=== PATIENT | male | born 1975 | race Two or more races ===

== ENCOUNTER 2019-04-29 15:17 | Emergency (ER) | payer OTHER ==
[~2019-04-29] VITALS: Ht 177.8 cm; Wt 106.6 kg
[~2019-04-29 15:17] MED LIST: PREVACID30 MG PO; TAMIFLU45 MG
== END 2019-04-29 21:29 | disposition home or self-care (01) ==
LOC: ER 15:17
DX: N39.0 Urinary tract infection, site not specified (principal); B96.29 Other Escherichia coli [E. coli] as the cause of diseases classified elsewhere